=== PATIENT | female | born 1985 | race Two or more races ===

== ENCOUNTER → 2024-07-17 | Outpatient (CLI) | payer MEDICAID, SELFPAY ==
--- NOTE | 2024-07-17 12:30 | XR_ITS ---
Examination: Breast ultrasound complete, bilateral Date and time of exam: July 17, 2024 1318 hrs. Indications: Patient states lump left breast note is beginning 2 months ago, family history, mother, breast cancer Technique: Real-time grayscale ultrasonographic imaging bilateral breasts, including all 4 quadrants as well as nipple retroareolar and axillary regions. Findings: Sonographic images right breast Multiple benign cysts 11:00 nodule circumscribed 13 x 9 mm Sonographic images left breast 3:00 nodule circumscribed 4 x 4 millimeter 6:00 nodule circumscribed 7 x 6 mm Retroareolar nodule circumscribed 6 x 6 mm Benign cyst Impression: BI-RADS Category 3: Probably benign findings Recommend 1 additional bilateral 6 month breast sonography to confirm stability of bilateral breast nodules described above
--- NOTE | 2024-07-17 13:30 | XR_ITS ---
Examination: Diagnostic digital mammography, bilateral Computer aided detection 3-D breast Tomosynthesis, bilateral Date and time of exam: 07/17/2024, 1:53 PM Comparisons: Baseline exam Indications:Palpable abnormality left breast. Technique: Nonmagnified MLO, CC views of the breasts to been obtained, reconstructed from 3-D Tomosynthesis images. R2 computer aided detection program utilized for evaluation of suspicious masses and/or abnormal calcifications. 3-D Tomosynthesis images obtained. Findings: The breasts are heterogeneously dense, which may obscure small masses. Grouped amorphous calcifications central left breast. Otherwise, no No evidence of abnormal masses or suspicious calcifications. No mammographic correlate for the palpable abnormality. Impression: Grouped amorphous calcifications central left breast. Spot magnification CC and true lateral views are recommended. BI-RADS category 0: Incomplete assessment; need additional imaging evaluation
== END | disposition home or self-care (01) ==
LOC: CDIM 13:03
PROVIDERS: PCP Nurse Practitioner Family; Referring Provider Nurse Practitioner Family; Visit Provider Nurse Practitioner Family
DX: R92.1 Mammographic calcification found on diagnostic imaging of breast (principal); N63.25 Unspecified lump in the left breast, overlapping quadrants; N63.42 Unspecified lump in left breast, subareolar; N63.11 Unspecified lump in the right breast, upper outer quadrant; N60.01 Solitary cyst of right breast; N60.02 Solitary cyst of left breast
CPT/HCPCS: 76641; 77062; 77066; G0279

== ENCOUNTER → 2025-03-28 | Outpatient (CLI) | payer MEDICAID, SELFPAY ==
--- NOTE | 2025-03-28 08:45 | XR_ITS ---
Examination: Breast ultrasound complete, bilateral Date and time of exam: March 28, 2025, 0920 hours INDICATIONS: Bilateral breast sonography 8.7 2024 right breast 11:00 nodule 13 mm, left breast 2:00 nodule 6 mm 6:00 nodule 7 mm retroareolar nodule 6 mm, history breast pain Technique: Real-time grayscale ultrasonographic imaging bilateral breasts, including all 4 quadrants as well as nipple retroareolar and axillary regions. Findings: Sonographic images right breast 11:00 solid nodule lobular margins 11 x 8 mm Sonographic images left breast 3:00 cyst 2 x 3 mm 6:00 cyst 7 x 6 mm IMPRESSION: BI-RADS Category 3: Probably benign findings Recommend 1 additional 6-month right breast sonogram follow-up to document stability of 11:00 nodule described above
--- NOTE | 2025-03-28 09:45 | XR_ITS ---
Examination: Diagnostic digital mammography, bilateral Computer aided detection 3-D breast Tomosynthesis, bilateral Date and time of exam: March 28, 2025, 0934 hours INDICATIONS: Grouped suspicious microcalcifications central left breast on mammogram July 17, 2024 Technique: Nonmagnified MLO, CC views of the breasts to been obtained, reconstructed from 3-D Tomosynthesis images. R2 computer aided detection program utilized for evaluation of suspicious masses and/or abnormal calcifications. 3-D Tomosynthesis images obtained. Findings: The breasts are heterogeneously dense, which may obscure small masses Suspicious BI-RADS 4 grouped microcalcifications are confirmed 12 o'clock position left breast Impression: BI-RADS Category 4: Suspicious for malignancy Suspicious microcalcifications confirmed 12 o'clock position left breast, biopsy needed to exclude breast carcinoma, calcifications amenable to stereotactic breast biopsy.
== END | disposition home or self-care (01) ==
PROVIDERS: PCP Family Medicine; Referring Provider Family Medicine; Visit Provider Family Medicine
DX: R92.343 Mammographic extreme density, bilateral breasts (principal); R92.0 Mammographic microcalcification found on diagnostic imaging of breast; N63.11 Unspecified lump in the right breast, upper outer quadrant
CPT/HCPCS: 76641; 77062; 77066; G0279